=== PATIENT | female | born 1945 | race Asian ===

== ENCOUNTER 2017-02-17 06:14 | Day surgery (SDC) | payer OTHER ==
[2017-02-16 10:55] VITALS: Ht 167.6 cm; Wt 65.0 kg
--- NOTE | 2017-02-16 13:08 | PREOPHP ---
DATE OF ADMISSION: 02/17/2017 HISTORY OF PRESENT ILLNESS: This 71-year-old patient is admitted for elective cataract surgery for a mature cataract of the left eye. The patient has had decreased vision in that eye for the past 2 to 3 years. The patient denies prior history of eye disease or injury. She does have a history of systemic hypertension and having a breast mastectomy in 2011. CURRENT MEDICATIONS: The patient is currently taking Metoprolol. ALLERGIES: THERE ARE NO KNOWN ALLERGIES. PHYSICAL EXAMINATION: The visual acuity best corrected is 20/400 in the right eye and finger counti ng vision in the left eye. Slit lamp examination reveals advanced nuclear sclerotic and posterior s ubcapsular cataract in the right eye and a mature cataract in the left eye. Applanation tonometry i s 415 mmHg in both eyes. Examination of the retina in the right eye appears within normal limits. The left eye is obscured by the mature cataract. DIAGNOSIS: Mature cataract, left eye. PLAN: Cataract extraction with lens implant, left eye. The risks and alternatives to the surgery h ave been discussed with the patient as well as the difficulty to prognosticate visual outcome due to the inability to visualize the retina in the left eye. Patient understands this and agrees to proc eed with surgery. Dictated By: KRYSTIAN GALVIN/HOMER Conf#: [id number] DID#: [id number]
[~2017-02-17] VITALS: Ht 167.6 cm; Wt 65.0 kg
[2017-02-17] VITALS (12 sets, daily range): BP systolic 130–184; BP diastolic 63–99; PULSE 64–70; RESP 16–19
[2017-02-17] MEDS ORDERED: LISI20TA11 PO (07:32)
[2017-02-17] MEDS ORDERED: METO50TA16 PO (07:33)
[2017-02-17] MEDS ORDERED: DICLOFENAC 0.1% 2.5 ML OPH OPER SCH (09:00)
[2017-02-17] MEDS ORDERED: TROPICAMIDE 1% 2 ML OPH OPER SCH (09:00)
[2017-02-17] MEDS ORDERED: CIPROFLOXACIN 0.3% 2.5 ML OPH OPER SCH (09:00)
[2017-02-17] MEDS ORDERED: CYCLOPENTOLATE/PHENYLEPH 2 ML OPH OPER SCH (09:00)
[2017-02-17] MEDS ORDERED: PROPOFOL 20 ML ONE (09:52)
[2017-02-17] MEDS ORDERED: CARBACHOL 0.01% 1.5 ML OPH INJ IO ONE (10:00)
[2017-02-17] MEDS ORDERED: HYALURONATE/CHONDROITIN 1ML OPH INJ IO ONE (10:00)
[2017-02-17] MEDS ORDERED: CEFAZOLIN 1 GM INJ INJ ONE (10:00)
[2017-02-17] MEDS ORDERED: DEXAMETHASONE 4 MG/ML 1 ML INJ INJ ONE (10:00)
[2017-02-17] MEDS ORDERED: hydrALAzine 20 MG INJ IV PRN (10:30)
[2017-02-17] MEDS ORDERED: FENTAnyl 50 MCG/ML VIAL IV PRN ×2 (10:30)
[2017-02-17] MEDS ORDERED: ONDANSETRON 4 MG INJ IV PRN (10:30)
[2017-02-17] MEDS ORDERED: MEPERIDINE 25 MG INJ IV PRN (10:30)
[2017-02-17] MEDS ORDERED: LABETALOL HCL 20MG INJ IV PRN (10:30)
[2017-02-17] MEDS ORDERED: HYDROmorphONE (0.2 MG/ML) 10ML SYG IV PRN ×3 (10:30)
[2017-02-17] MEDS ORDERED: EPINEPHrine 1 MG INJ ONE (10:48)
[2017-02-17] MEDS ORDERED: LIDOCAINE 4% (MPF) 5 ML INJ ONE (10:48)
[2017-02-17] MEDS ORDERED: GENTAMICIN 80 MG INJ ONE (10:48)
[2017-02-17] MEDS ORDERED: DEXAMETHASONE 4 MG/ML 1 ML INJ ONE (10:48)
[2017-02-17] MEDS ORDERED: CEFAZOLIN 1 GM INJ ONE (10:48)
[2017-02-17] MEDS ORDERED: HYALURONATE/CHONDROITIN 1ML OPH INJ ONE (10:48)
[2017-02-17] MEDS ORDERED: CARBACHOL 0.01% 1.5 ML OPH INJ ONE (10:48)
--- NOTE | 2017-02-17 11:55 | OPR ---
DATE OF OPERATION: 02/17/2017 PREOPERATIVE DIAGNOSIS: Mature cataract, left eye. POSTOPERATIVE DIAGNOSIS: Mature cataract, left eye. SURGEON: Krystian Wong MD TEACHER ASSISTANT: ANESTHESIA: Local standby. ANESTHESIOLOGIST: Dr. Wayne OPERATION: Cataract extraction with lens implant, left eye. PROCEDURE: The patient was brought to the operating room and placed on the table with an IV in plac e and the patient attached to an compliance monitor. Oxygen was given via face mask. After some intravenous sedation was administered, local anesthesia was given using Xylocaine 2% with epinephrine, mixed with Marcaine 0.5%. This was given in a lid block and retrobulbar injection. The patient was then prepped and draped in the usual sterile manner. A wire lid speculum was inserted between the lids of the left eye. A Superblade was used to enter th e anterior chamber at the corneoscleral limbus at the 10:30 o'clock position. A separate incision wa s made using a 3.0-mm keratome which entered the corneoscleral junction at the 12 o'clock position. Through this 3-mm opening, an irrigating cystitome was introduced into the anterior chamber. The echo mber was filled with Viscoat and an anterior capsulotomy was performed. Balanced salt solution was t hen used for hydrodissection of the lens. A phacoemulsification handpiece was then brought into the field and introduced into the anterior chamber. The lens nucleus was emulsified using a deep groove and cracking the nucleus into quadrants. Following this, each quadrant was aspirated and emulsified at the pupillary margin. Because of the extreme density and hardness of the lens nucleus, an exten ded period of ultrasonic time, which was noted to be greater than 3 minutes, was required to emulsif y the lens nucleus. During this time, repeated injections of DisCoVisc were placed in the anterior chamber to protect the corneal endothelium. After this was completed, the irrigation/aspiration handpiece was brought to the field, introduced i nto the posterior chamber, and the lens cortical material was removed. When this was completed, luana tional Viscoat was injected into the anterior and posterior chambers. The 3-mm opening had its internal lips enlarged, and then the posterior chamber intraocular lens keren suring 22.0 diopters ([employer] model LI61AO) was then injected into the posterior chamber using the lens injector system. After the leading haptic was introduced into the capsular b ag and the lens optic was present in the center of the eye, the injector was removed and the trailin g haptic was grasped with non-toothed forceps and introduced into the capsular fold superiorly. A Si nskey hook was then used to rotate the intraocular lens so that the lips were oriented in the horizo ntal meridian. One 10-0 nylon suture was placed across the wound. Prior to tying, the irrigation/aspiration handpiece was reintroduced into the anterior chamber to re move the Viscoat. Miochol was instilled to constrict the pupil, and then the 10-0 nylon suture was t ied. The ends were cut short and then the knot was buried. Then, 0.5 mL of dexamethasone and 0.5 mL of Ancef were injected into the sub-Tenon space in the infe rior fornix. Ciloxan drops were then placed on the surface of the eye. The speculum was removed and a patch was applied. The patient then left the operating room in satisfactory condition. Dictated By: KRYSTIAN GALVIN/HOMER Conf#: [id number] DID#: [id number]
== END 2017-02-17 12:25 | disposition home or self-care (01) ==
LOC: SDS 06:14
PROVIDERS: ATTEND Ophthalmology
DX: H25.12 Age-related nuclear cataract, left eye (principal); I10 Essential (primary) hypertension
CPT/HCPCS: 66984; J0171; J0360; J0690; J1100; J1580; V2632; Z7512; Z7610

== ENCOUNTER 2017-06-02 05:50 | Day surgery (SDC) | payer OTHER ==
--- NOTE | 2017-06-01 09:28 | PREOPHP ---
DATE OF ADMISSION: 06/02/2017 HISTORY OF PRESENT ILLNESS: This 72-year-old patient is admitted for elective cataract surgery of the right eye. The patient has had decreased vision in both eyes for approximately 3 years, and 3 months ago underwent cataract surgery of the left eye with significant visual improvement. The patient denies prior history of eye disease or injury. REVIEW OF SYSTEMS: Positive for hypertension and mastectomy surgery in 2011. CURRENT MEDICATIONS: Metoprolol. ALLERGIES: NO KNOWN ALLERGIES. PHYSICAL EXAMINATION: HEENT: The visual acuity with best correction is finger counting in the right eye and 20/60 in the left eye. Slit lamp examination reveals nuclear sclerotic and diffuse posterior subcapsular cataract changes in the right eye. The left eye has a posterior chamber intraocular lens in appropriate position with a central laser induced capsulotomy. Applanation tonometry is 16 mmHg. Examination of the retina is within normal limits. DIAGNOSIS: Cataract, right eye. PLAN: Cataract extraction with lens implant, right eye. The risks and alternatives to the surgery have been discussed with the patient. The prognosis for visual outcome in the right eye is uncertain due to the inability to visualize the retina in that eye due to the advanced cataract. The patient understands this and agrees to proceed with surgery in hopes of improving visual acuity leading to greater ability to perform activities of daily living. Dictated By: Dennis Wong MD /[email or web address] /Document#: [id number]
[2017-06-02] VITALS (10 sets, daily range): BP systolic 133–220; BP diastolic 66–106; PULSE 58–70; RESP 9–39; Ht 170.2 cm; Wt 59.0 kg
[~2017-06-02] VITALS: Ht 170.2 cm; Wt 59.0 kg
[~2017-06-02 05:50] MED LIST: LISI20TA11 PO; METO50TA16 PO
[2017-06-02] MEDS ORDERED: TROPICAMIDE 1% 3ML OPH OPER SCH (06:30)
[2017-06-02] MEDS ORDERED: CYCLOPENTOLATE/PHENYLEPH 2 ML OPH OPER SCH (06:30)
[2017-06-02] MEDS ORDERED: CIPROFLOXACIN 0.3% 2.5 ML OPH OPER SCH (06:30)
[2017-06-02] MEDS ORDERED: DICLOFENAC 0.1% 2.5 ML OPH OPER SCH (06:30)
[2017-06-02] MEDS ORDERED: EPINEPHrine 1 MG INJ ONE (06:33)
[2017-06-02] MEDS ORDERED: HYALURONATE/CHONDROITIN 1ML OPH INJ ONE (06:33)
[2017-06-02] MEDS ORDERED: CARBACHOL 0.01% 1.5 ML OPH INJ ONE (06:33)
[2017-06-02] MEDS ORDERED: GENTAMICIN 80 MG INJ ONE (06:33)
[2017-06-02] MEDS ORDERED: LIDOCAINE 4% (MPF) 5 ML INJ ONE (06:33)
[2017-06-02] MEDS ORDERED: DEXAMETHASONE 4 MG/ML 1 ML INJ ONE (06:33)
[2017-06-02] MEDS ORDERED: CEFAZOLIN 1 GM INJ ONE (06:33)
[2017-06-02] MEDS ORDERED: PROPOFOL 20 ML ONE (07:52)
[2017-06-02] MEDS ORDERED: MIDAZOLAM 1 MG/ML 2 ML INJ ONE (07:52)
[2017-06-02] MEDS ORDERED: FENTAnyl 50 MCG/ML VIAL ONE (07:52)
[2017-06-02] MEDS ORDERED: LABETALOL HCL 20MG INJ IV PRN (08:00)
[2017-06-02] MEDS ORDERED: METOCLOPRAMIDE 10 MG INJ IV PRN (08:00)
[2017-06-02] MEDS ORDERED: DIPHENHYDRAMINE 50 MG INJ IV PRN (08:00)
[2017-06-02] MEDS ORDERED: PROCHLORPERAZINE 10 MG INJ IV PRN (08:00)
[2017-06-02] MEDS ORDERED: MEPERIDINE 25 MG INJ IV PRN (08:00)
[2017-06-02] MEDS ORDERED: hydrALAzine 20 MG INJ IV PRN (08:00)
[2017-06-02] MEDS ORDERED: FENTAnyl 50 MCG/ML VIAL IV PRN (08:00)
[2017-06-02] MEDS ORDERED: ONDANSETRON 4 MG INJ IV PRN (08:00)
[2017-06-02] MEDS ORDERED: OXYCODONE/ACETAMINOPHEN (5/325) TAB PO PRN (08:00)
[2017-06-02] MEDS ORDERED: HYALURONATE/CHONDROITIN 1ML OPH INJ IO ONE (08:19)
[2017-06-02] MEDS ORDERED: CARBACHOL 0.01% 1.5 ML OPH INJ IO ONE (08:19)
[2017-06-02] MEDS ORDERED: DEXAMETHASONE 4 MG/ML 1 ML INJ INJ ONE (08:19)
[2017-06-02] MEDS ORDERED: CEFAZOLIN 1 GM INJ INJ ONE (08:19)
[2017-06-02] MEDS ORDERED: ONDANSETRON 4 MG INJ ONE (08:36)
[2017-06-02] MEDS ORDERED: LABETALOL HCL 20MG INJ ONE (08:36)
--- NOTE | 2017-06-02 09:07 | OPR ---
Date/Time of Note Date/Time of Note DATE: 06/02/17 TIME: 09:05 Operative Report Preoperative Diagnosis cataract od Operation/Procedure Performed cataract surgery od Surgeon: KRYSTIAN VALLE MD Anesthesia Type: MAC Estimated Blood Loss: none Transfusion Required: no Specimen: none Grafts/Implants lens implant Complications: no KRYSTIAN VALLE MD Jun 02, 2017 09:07
--- NOTE | 2017-06-02 09:26 | OPR ---
DATE OF OPERATION: 06/02/2017 PREOPERATIVE DIAGNOSIS: Cataract, right eye. POSTOPERATIVE DIAGNOSIS: Cataract, right eye. SURGEON: Dennis Wong MD AGRICULTURAL CHEMICALS INSPECTOR: ANESTHESIA: Local standby. ANESTHESIOLOGIST: Dr. Santa Castellanos. OPERATION: Phacoemulsification with posterior chamber intraocular lens implant, right eye. PROCEDURE: The patient was brought to the operating room and placed on the table with an IV in place and the patient attached to an monitoring analyst. Oxygen was given via face mask. After some intravenous sedation was administered, local anesthesia was given using Xylocaine 2% with epinephrine, mixed with Marcaine 0.5%. This was given in a lid block and retrobulbar injection. The patient was then prepped and draped in the usual sterile manner. A wire lid speculum was inserted between the lids of the right eye. A Superblade was used to enter the anterior chamber at the corneoscleral limbus at the 10:30 o'clock position. A separate incision was made using a 3.0-mm keratome which entered the corneoscleral junction at the 12 o'clock position. Through this 3- mm opening, an irrigating cystotome was introduced into the anterior chamber. The chamber was filled with Viscoat and an anterior capsulotomy was performed. Balanced salt solution was then used for hydrodissection of the lens. A phacoemulsification handpiece was then brought into the field and introduced into the anterior chamber. The lens nucleus was emulsified using a deep groove and cracking the nucleus into quadrants. Following this, each quadrant was aspirated and emulsified at the pupillary margin. After this was completed, the irrigation/aspiration handpiece was brought to the field, introduced into the posterior chamber, and the lens cortical material was removed. When this was completed, additional Viscoat was injected into the anterior and posterior chambers. The 3-mm opening had its internal lips enlarged, and then the posterior chamber intraocular lens measuring 22.0 diopters ([employer], model LI61AO) was then injected into the posterior chamber using the lens injector system. After the leading haptic was introduced into the capsular bag and the lens optic was present in the center of the eye, the injector was removed and the trailing haptic was grasped with non-toothed forceps and introduced into the capsular fold superiorly. A Sinskey hook was then used to rotate the intraocular lens so that the lips were oriented in the horizontal meridian. One 10-0 nylon suture was placed across the wound. Prior to tying, the irrigation/aspiration handpiece was reintroduced into the anterior chamber to remove the Viscoat. Miochol was instilled to constrict the pupil, and then the 10-0 nylon suture was tied. The ends were cut short and then the knot was buried. Then, 0.5 mL of dexamethasone and 0.5 mL of Ancef were injected into the sub-Tenon space in the inferior fornix. Ciloxan drops were then placed on the surface of the eye. The speculum was removed and a patch was applied. The patient then left the operating room in satisfactory condition. Dictated By: Dennis Wong MD /[email or web address] /Document#: [id number]
== END 2017-06-02 10:05 | disposition home or self-care (01) ==
LOC: SDS 05:50
PROVIDERS: ATTEND Ophthalmology
DX: H25.11 Age-related nuclear cataract, right eye (principal); I10 Essential (primary) hypertension
CPT/HCPCS: 66984; J0171; J0360; J0690; J1100; J1580; J2250; J2405; J3010; V2632; Z7512; Z7610